=== PATIENT | female | born 1990 | race Caucasian/White ===

== ENCOUNTER 2019-09-05 07:09 | Emergency (ER) | payer SELFPAY ==
[2019-09-05 07:15] VITALS: TEMP 36.8; BMI 19.7
--- NOTE | 2019-09-05 07:16 | ED_ITS ---
HPI - Abdominal Pain General: Chief Complaint: Abdominal Pain Stated Complaint: RIGHT SIDE PAIN Time Seen by Provider: 09/05/19 07:14 Source: patient Mode of arrival: ambulatory Limitations: no limitations History of Present Illness: HPI narrative: Patient comes in today for complaints of right-sided abdominal pain. Patient reports that 2 days ago she started vomiting and having chills on and off. Patient reports awakening this morning with increased right-sided abdominal pain. Patient has a history of Hodgkin's lymphoma. Patient has a history of surgical procedures tonsillectomy and adenoidectomy, insertion of port, and lymph node biopsy. Patient denies any blood in vomit or stool. Patient does report some constipation. Patient appears unwell. Patient appears in moderate to severe pain. MD elicited complaint: abdominal pain Review of Systems General: Reports: 10 or more systems reviewed and unremarkable except in HPI and below GI: Reports: abdominal pain PFSH ED PFSH: Social History Smoking and tobacco status: current every day smoker Physical Exam Const: COMMON NORMALS: no acute distress and patient oriented x3 GENERAL APPEARANCE: cooperative HENMT: COMMON NORMALS: normocephalic and Normal external nose present HEAD & SCALP: normal to inspection and normocephalic NOSE: Normal external nose present MOUTH: Normal oral and palatal mucosa present Eye: GENERAL EYE: appearance normal, both eyes and all related structures Neck/C-Spine: COMMON NORMALS: full ROM Lymph: LYMPHATIC: no lymphadenopathy noted Chest: COMMONS NORMALS: normal inspection of the chest Resp: COMMON NORMALS: normal respiratory effort EFFORT & INSPECTION: Yes able to speak in complete sentences Cardio: COMMON NORMALS: regular rate and regular rhythm RATE: regular rate RHYTHM: regular rhythm GI: COMMON NORMALS: Soft to palpation AUSCULTATION: Yes Hypoactive bowel sounds present PALPATION: Yes Soft to palpation and Yes Tenderness to palpation present (GI) Details: RLQ : COMMON NORMALS: Yes no CVA tenderness BLADDER/KIDNEY EXAM: Yes no CVA tenderness Back/Pelvis: COMMON NORMALS: no CVA tenderness and thoracic and lumbar spine normal to inspection Extremity: COMMON NORMALS: normal to inspection Neuro: COMMON NORMALS: patient oriented x3 and moves all extremities Psych: COMMON NORMALS: mental status grossly normal and cooperative Skin: COMMON NORMALS: no rashes or lesions noted GENERAL SKIN EXAM: no rashes or lesions noted Course ED course: 835, patient resting well, reports improvement in pain, we are awaiting CT report and urinalysis. Patient has had no episode of nausea or vomiting. Patient has been treated with 2 mg of morphine IV, 4 mg of Zofran IV, and 1 L of normal saline. wjw 10:00, patient reports abdominal pain is relieved. Awaiting CT report. Urinalysis was clear. Patient had to have a dose of 15 mg ketorolac and 40 mg pantoprazole 30 minutes after medication administration patient had relief of discomfort. wjw Vital Signs: Vital signs: Vital Signs Temperature 98.3 F 09/05/19 07:15 Pulse Rate 99 09/05/19 07:25 Respiratory Rate 18 09/05/19 07:40 Blood Pressure 120/72 09/05/19 07:25 Pulse Oximetry 100 09/05/19 07:25 MDM - Abdominal Pain MDM Narrative: Medical decision making narrative: Patient comes in today with complaints of abdominal pain on the right side. Patient states that she has been ill for about 2 days with nausea and vomiting. Patient woke up this morning with right-sided abdominal discomfort. Patient does report constipation. And low-grade fever. Exam notes abdomen soft and tender in the right side of the abdomen. Bowel sounds are hypoactive. Vital signs are normal. Differential diagnosis includes but not limited to appendicitis, cholecystitis, constipation, gastroenteritis, pancreatitis, renal calculi, pyelonephritis. CBC, CMP, and urinalysis were unremarkable. CT scan of the abdomen and pelvis ruled out appendicitis but noted some gastritis and constipation. Patient had relief of pain with Protonix. We will continue the Protonix and give Zofran as needed for nausea. Patient was also placed on some MiraLAX for constipation. Patient reports understanding of care plan and agreed to recommendations. Differential Diagnosis: Differential diagnosis abdominal pain: Likely abdominal pain, acute appendicitis, calculus of kidney, constipation, diverticu litis, gastroenteritis, pancreatitis and small bowel obstruction Lab Data: Labs: Lab Results 09/05/19 09/05/19 09/05/19 Range/Units 07:25 07:25 07:25 WBC 5.5 (4.0-10.0) 10^3/ uL RBC 4.79 (4.1-5.3) 10^6/u L Hgb 14.5 (11.5-15.3) g/dL Hct 43.8 (37.0-47.0) % MCV 91.4 (81-99) fL MCH 30.3 (28.0-34.0) pg MCHC 33.1 (30.0-36.0) g/dL RDW 11.6 L (12.1-15.1) % Plt Count 286 (130-400) 10^3/c mm MPV 11.6 H (7.4-10.4) fL Neut % (Auto) 72.8 % Lymph % (Auto) 21.2 % Ripley % (Auto) 4.9 % Eos % (Auto) 0.5 % Baso % (Auto) 0.4 % Neut # (Auto) 4.0 (1.8-7.7) 10^3/u L Lymph # (Auto) 1.2 (0.8-4.8) 10^3/u L Ripley # (Auto) 0.3 (0.2-0.9) 10^3/u L Eos # (Auto) 0.0 (0.0-0.8) 10^3/u L Baso # (Auto) 0.0 (0.0-0.1) 10^3/u L Nucleated RBC % (a uto) 0 % Nucleated RBCs # 0.0 /100WBC Sodium 142 (136-145) mmol/L Potassium 3.8 (3.5-5.1) mmol/L Chloride 104 (98-107) mmol/L Carbon Dioxide 24 (22-29) mmol/L Anion Gap 17.8 (5-19) BUN 10 (6-20) mg/dL Creatinine 0.5 (0.5-0.9) mg/dL GFR Calculation 143.9 H (90-130) mL/min Glucose 102 (65-115) mg/dL Calculated Osmolal ity 290 (285-295) mOsm/k g Calcium 10.2 (8.5-10.5) mg/dL Total Bilirubin 0.7 (0.15-1.2) mg/dL AST 18 (0-32) U/L ALT 16 (0-33) U/L Alkaline Phosphata se 53 (35-105) IU/L Total Protein 7.3 (6.6-8.7) g/dL Albumin 5.1 (3.5-5.2) g/dL Globulin 2.2 (1.3-4.6) g/dL Lipase 40 (13-60) U/L HCG, Qual Negative (Negative) Urine Color (Yellow) Urine Appearance (CLEAR) Urine pH (5-7) Ur Specific Gravit y (1.005-1.030) Urine Protein (Negative) Urine Glucose (UA) (Normal) Urine Ketones (Negative) Urine Blood (Negative) Urine Nitrate (Negative) Urine Bilirubin (NEGATIVE) Urine Urobilinogen (Negative) mg/dL Ur Leukocyte Daniella ase (Negative) 09/05/19 Range/Units 07:50 WBC (4.0-10.0) 10^3/ uL RBC (4.1-5.3) 10^6/u L Hgb (11.5-15.3) g/dL Hct (37.0-47.0) % MCV (81-99) fL MCH (28.0-34.0) pg MCHC (30.0-36.0) g/dL RDW (12.1-15.1) % Plt Count (130-400) 10^3/c mm MPV (7.4-10.4) fL Neut % (Auto) % Lymph % (Auto) % Ripley % (Auto) % Eos % (Auto) % Baso % (Auto) % Neut # (Auto) (1.8-7.7) 10^3/u L Lymph # (Auto) (0.8-4.8) 10^3/u L Ripley # (Auto) (0.2-0.9) 10^3/u L Eos # (Auto) (0.0-0.8) 10^3/u L Baso # (Auto) (0.0-0.1) 10^3/u L Nucleated RBC % (a uto) % Nucleated RBCs # /100WBC Sodium (136-145) mmol/L Potassium (3.5-5.1) mmol/L Chloride (98-107) mmol/L Carbon Dioxide (22-29) mmol/L Anion Gap (5-19) BUN (6-20) mg/dL Creatinine (0.5-0.9) mg/dL GFR Calculation (90-130) mL/min Glucose (65-115) mg/dL Calculated Osmolal ity (285-295) mOsm/k g Calcium (8.5-10.5) mg/dL Total Bilirubin (0.15-1.2) mg/dL AST (0-32) U/L ALT (0-33) U/L Alkaline Phosphata se (35-105) IU/L Total Protein (6.6-8.7) g/dL Albumin (3.5-5.2) g/dL Globulin (1.3-4.6) g/dL Lipase (13-60) U/L HCG, Qual (Negative) Urine Color Yellow (Yellow) Urine Appearance Clear (CLEAR) Urine pH 6.0 (5-7) Ur Specific Gravit y 1.005 (1.005-1.030) Urine Protein Neg (Negative) Urine Glucose (UA) Norm (Normal) Urine Ketones 1+ H (Negative) Urine Blood Neg (Negative) Urine Nitrate Negative (Negative) Urine Bilirubin Neg (NEGATIVE) Urine Urobilinogen Norm (Negative) mg/dL Ur Leukocyte Daniella ase Negative (Negative) EKG Data ^: EKG 1: Attestation: I personally reviewed and interpreted this EKG as follows: (735, sinus rhythm with regular rate at [address] elevation. Artifact present. No ectopy.) Discharge Plan Discharge Patient Disposition: Home, Self-Care Clinical Impression: Gastritis Qualifiers: Gastritis type: unspecified gastritis Chronicity: acute Gastritis bleeding: without bleeding Qualified Code(s): K29.00 - Acute gastritis without bleeding Constipation Qualifiers: Constipation type: unspecified constipation type Qualified Code(s): K59.00 - Constipation, unspecified Condition: Stable Prescriptions: New pantoprazole 40 mg tablet,delayed release (DR/EC) 40 mg PO BID 14 Days Qty: 28 RF: 0 ondansetron HCl 4 mg tablet 4 mg PO Q8H PRN (Reason: nausea and vomiting) Qty: 10 RF: 0 Miralax 17 gram/dose powder 17 gm PO BID PRN (Reason: constipation) Qty: 238 RF: 0 Discharge Orders: Discharge Order (Routine); Ordered 09/05/19 Ordered By: Osman Nash Referrals: Matt Lee MD [Primary Care Provider] - Discharge Diet: Usual diet Discharge Activity: Increase activity as tolerated Patient Instructions: Gastritis (ED) Activity Restrictions/Additional Instructions: Light diet, increase as tolerated. Take pantoprazole twice a day for the next 2 weeks, take it 30 minutes prior to the first meal of the day and then 30 minutes prior to the last meal of the day. Take Zofran as needed for nausea. Use MiraLAX twice daily for constipation. The use of MiraLAX may take 1 to 2 days of use prior to production of bowel movement. Follow-up with primary care in 1 week. Return to the ER for worsening symptoms or high fever greater than 100.4, or blood in bowel or vomit. Coding Level of Care Code ED Lead Solutions Architect for Cindy Fwd Exam Comprehensive
--- NOTE | 2019-09-05 07:19 | XRR_ITS ---
PROCEDURE INFORMATION: Exam: XR Chest, 1 View Exam date and time: 09/05/2019 7:41 AM Age: 29 years old Clinical indication: Other: Vomiting and right side abd pain; Chills 2 days ago; Patient HX: HX of hodgkins lymphoma TECHNIQUE: Imaging protocol: XR of the chest Views: 1 view. COMPARISON: CR FluoroG CVA w CXR [id number] 12/04/2012 6:18 PM FINDINGS: Tubes, catheters and devices: Interval removal of previously visualized med port catheter. Lungs: Hyperinflation and mild interstitial prominence, without acute airspace disease. Pleural space: No pleural effusion. Heart/Mediastinum: Normal configuration of the heart. No residual mediastinal lymphadenopathy. Bones/joints: Unremarkable. XR/XR chest 1V portable [id number] IMPRESSION: Hyperinflation, without acute airspace or pleural disease.
--- NOTE | 2019-09-05 07:19 | ECG_ITS ---
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 Measurements Intervals Gracey Rate: 99 P: 82 OK: 142 QRS: 104 QRSD: 100 T: 56 QT: 331 QTc: 425 Interpretive Statements SINUS RHYTHM WITH SINUS ARRHYTHMIA POSSIBLE LEFT ATRIAL ENLARGEMENT [-0.1mV P WAVE IN V1/V2] RIGHT AXIS DEVIATION [QRS AXIS > 100] No previous ECG available for comparison Electronically Signed On 09-05-2019 21:13:32 CDT by Kimberley Varner M.D. [id number]
--- NOTE | 2019-09-05 07:19 | CTR_ITS ---
PROCEDURE INFORMATION: Exam: CT Abdomen And Pelvis With Contrast Exam date and time: 09/05/2019 7:35 AM Age: 29 years old Clinical indication: Abdominal pain; Acute; Prior surgery; Surgery date: 6+ months; Surgery type: Lympnode removed and tubal ligation; Patient HX: Rlq pain since this am, history of hodgkins lymphoma; Additional info: Right quad abd pain TECHNIQUE: Imaging protocol: Computed tomography of the abdomen and pelvis with intravenous contrast. Radiation optimization: All CT scans at this facility use at least one of these dose optimization techniques: automated exposure control; mA and/or kV adjustment per patient size (includes targeted exams where dose is matched to clinical indication); or iterative reconstruction. Contrast material: OMNIPAQUE 300; Contrast volume: 75 ml; Contrast route: INTRAVENOUS (IV); COMPARISON: CT Chest/Abdomen/Pelvis w IV* 06/24/2016 12:43 PM RADIATION DOSE METRICS: Total DLP (mGy-cm): 468.27 mild interstitial prominence without acute airspace or pleural disease. FINDINGS: Inferior thorax: No acute airspace or pleural disease. Liver: No focal hepatic mass. Gallbladder and bile ducts: Unremarkable gallbladder. No biliary ductal dilatation. Pancreas: No pancreatic mass or ductal dilatation. Spleen: No splenomegaly. Adrenals: Unremarkable adrenals. Kidneys and ureters: 4 mm right renal cyst. No hydronephrosis. Stomach and bowel: Mild wall thickening in the decompressed stomach. Mild small bowel dilatation without a transition zone. Copious stool, in a pattern of constipation. Diverticula, without pericolonic inflammation. Appendix: No acute appendicitis. Intraperitoneal space: No significant free fluid. Vasculature: Normal caliber of the abdominal aorta. Lymph nodes: Subcentimeter lymph nodes. Bladder: Nondistended bladder. Reproductive: Follicular change in the ovaries. Bones/joints: Transitional vertebra at the lumbosacral junction. Soft tissues: Small fat containing umbilical hernia. CT/CT abdomen pelvis w con* [id number] IMPRESSION: 1. No acute inflammatory process in the abdomen or pelvis. 2. Additional findings as described above. COMMENTS: Consistent with the [employer]'s Incidental Findings Committee white paper (J Am Rere Radiol 2018): Any incidental renal lesion less than 1.0 cm or classified as too small to characterize, or any incidental cystic renal lesion characterized as simple-appearing, is likely benign. No follow-up imaging is recommended for these lesions per consensus recommendations based on imaging criteria. Radiation Dose CTDIVOL = (mGy): DLP = 468.27 (mGy-cm)
[2019-09-05 07:25] VITALS: BP 120/72; PULSE 99; RESP 20; O2SAT 100
[2019-09-05 07:31] LABS: Basophils % 0.4 %; Eosinophils % 0.5 %; Hematocrit 43.8 % (37.0-47.0); Hemoglobin 14.5 g/dL (11.5-15.3); Lymphocytes # 1.2 10^3/uL (0.8-4.8); Lymphocytes % 21.2 %; Mean Corpuscular HGB Conc 33.1 g/dL (30.0-36.0); Mean Corpuscular Hemoglobin 30.3 pg (28.0-34.0); Mean Corpuscular Volume 91.4 fL (81-99); Mean Platelet Volume 11.6 fL (7.4-10.4); Monocytes # 0.3 10^3/uL (0.2-0.9); Monocytes % 4.9 %; Neutrophils % 72.8 %; Nucleated Red Blood Cells % 0 %; Platelet Count 286 10^3/cmm (130-400); Red Blood Count 4.79 10^6/uL (4.1-5.3); Red Cell Distribution Width 11.6 % (12.1-15.1); White Blood Count 5.5 10^3/uL (4.0-10.0)
[2019-09-05 07:40] VITALS: RESP 18
[2019-09-05] MEDS: morphine 4 mg/mL SDV 1 mL 2 MG IVP (07:40)
[2019-09-05 07:41] LABS: HCG, Serum Qual Negative (Negative)
[2019-09-05] MEDS: sodium chloride 0.9% 1,000 ML 999 ML IV (07:41)
[2019-09-05] MEDS: ondansetron 2 mg/ML SDV 2 mL 4 MG IVP (07:41)
[2019-09-05 07:50] LABS: Alanine Aminotransferase 16 U/L (0-33); Albumin Level 5.1 g/dL (3.5-5.2); Alkaline Phosphatase 53 IU/L (35-105); Anion Gap 17.8 (5-19); Aspartate Amino Transferase 18 U/L (0-32); Blood Urea Nitrogen 10 mg/dL (6-20); Calcium 10.2 mg/dL (8.5-10.5); Carbon Dioxide 24 mmol/L (22-29); Chloride 104 mmol/L (98-107); Globulin 2.2 g/dL (1.3-4.6); Glomerular Filtration Rate 143.9 mL/min (90-130); Glucose 102 mg/dL (65-115); Lipase 40 U/L (13-60); Osmolality Calculated 290 mOsm/kg (285-295); Potassium 3.8 mmol/L (3.5-5.1); Sodium 142 mmol/L (136-145); Total Bilirubin 0.7 mg/dL (0.15-1.2); Total Protein 7.3 g/dL (6.6-8.7)
[2019-09-05] MEDS: iohexol 300 mg/mL 100 mL Btl IV (08:01)
[2019-09-05 08:41] LABS: Add Urine Microscopic? NO
[2019-09-05 08:46] LABS: Bilirubin Urine Neg (NEGATIVE); Blood Urine Neg (Negative); Glucose Urine UA Norm (Normal); Ketones Urine 1+ (Negative); Leukocyte Esterase Urine Negative (Negative); Nitrate Urine Negative (Negative); Protein Urine Neg (Negative); Specific Gravity, Urine 1.005 (1.005-1.030); Urine Appearance Clear (CLEAR); Urine Color Yellow (Yellow); Urobilinogen Urine Norm (Negative)
[2019-09-05] MEDS: ketorolac 30 mg/mL INJ 15 MG IVP (09:12)
[2019-09-05] MEDS: pantoprazole 40 mg SDV IVP (09:13)
[2019-09-05 11:27] VITALS: BP 122/69; PULSE 92; RESP 18; O2SAT 100
== END 2019-09-05 11:28 | disposition home or self-care (01) ==
PROVIDERS: Emergency Provider Nurse Practitioner Family; PCP Family Medicine
DX: K29.00 Acute gastritis without bleeding (principal); K59.00 Constipation, unspecified; F17.210 Nicotine dependence, cigarettes, uncomplicated
CPT/HCPCS: 12345; 36415; 71045; 74177; 80053; 81003; 83690; 84703; 85025; 87040; 93005; 96361; 96374; 96375; 99283; C9113; J1885; J2270; J2405; J7030; Q9967

== ENCOUNTER → 2021-06-30 09:43 | Outpatient (BNVA) | payer SELFPAY | PROVIDERS: PCP Family Medicine; Visit Provider Family Medicine | DX: G47.00 Insomnia, unspecified (principal); R53.83 Other fatigue; R63.5 Abnormal weight gain | CPT/HCPCS: 82306; 84439; 84443 ==

== ENCOUNTER → 2021-12-20 08:50 | Outpatient (BNVA) | payer MEDICAID, SELFPAY | PROVIDERS: PCP Family Medicine; Visit Provider Nurse Practitioner Family | DX: N39.0 Urinary tract infection, site not specified (principal) | CPT/HCPCS: 81000 ==

== ENCOUNTER 2022-04-13 08:20 | Outpatient (CLI) | payer MEDICAID, SELFPAY ==
--- NOTE | 2022-04-13 08:29 | MM_ITS ---
WS: [id number] DIAGNOSTIC BILATERAL DIGITAL BREAST TOMOSYNTHESIS MAMMOGRAPHY WITH CAD RIGHT breast ultrasound, limited. HISTORY: RT BREAST MASS x2 years. COMPARISON: None available. TECHNIQUE: Bilateral craniocaudad, mediolateral oblique, and mediolateral views are submitted with to mosynthesis and SM. Spot compression RIGHT CC and MLO. Computer aided detection utilized. Breast composition: The breasts are heterogeneously dense, which may obscure small masses. Palpable m arker is placed along the medial inferior RIGHT breast in the area of the palpable nodule. No mass or distortion identified at this site. The remaining breasts are symmetric and mildly heterogeneous. RIGHT breast ultrasound, limited. No ultrasound abnormality in the RIGHT breast on the 4:00 axis as directed by the patient. There is a very tiny lymph node 3 cm from the nipple. MM/[place] [id number] IMPRESSION: BI-RADS: 2-Benign FOLLOW UP: Age 38
== END 2022-04-13 08:21 | disposition home or self-care (01) ==
LOC: RAD 08:26
PROVIDERS: PCP Family Medicine; Visit Provider Advanced Practice Midwife
DX: N63.23 Unspecified lump in the left breast, lower outer quadrant (principal)
CPT/HCPCS: 76642; 77062; G0279

== ENCOUNTER → 2024-04-29 08:49 | Outpatient (BNVA) | payer SELFPAY | PROVIDERS: PCP Family Medicine; Visit Provider Family Medicine Adult Medicine | DX: R06.00 Dyspnea, unspecified (principal); R05.9 Cough, unspecified; R07.89 Other chest pain | CPT/HCPCS: 71046; 85025 ==

== ENCOUNTER 2024-10-03 12:38 | Outpatient (CLI) | payer MEDICAID, SELFPAY ==
--- NOTE | 2024-10-03 12:41 | US_ITS ---
WS: [id number] US pelv w/transvag [id number] HISTORY: IRREGULAR MENSES COMPARISON: None available. Uterus: 9.1 cm x 5.0 cm x 4.5 cm. Normal size anteverted uterus. No fibroid or mass. Endometrium: 0.5 cm. Normal. No increased vascularity. No mass. Nabothian cysts at the cervix. Right ovary: 2.8 cm x 3.0 cm x 2.0 cm. Normal size and vascularity, no cystic or solid masses. Left ovary: 2.8 cm x 2.2 cm x 2.0 cm. Normal size and vascularity, no cystic or solid masses. No free fluid in the cul-de-sac. US/US pelv w/transvag [id number] IMPRESSION: 1. Normal size endometrium. No mass or increased vascularity. 2. No fibroid identified. 3. Normal ovaries.
== END 2024-10-03 12:39 | disposition home or self-care (01) ==
PROVIDERS: PCP Nurse Practitioner Family; Visit Provider Nurse Practitioner Family
DX: N92.6 Irregular menstruation, unspecified (principal)
CPT/HCPCS: 76830; 76856